=== PATIENT | male | born 1950 | race Caucasian/White ===

== ENCOUNTER 2018-01-09 11:14 | Outpatient (CLI) | payer MEDICARE, OTHER | END 2018-01-09 11:15 | disposition home or self-care (01) | LOC: DI 11:14 | PROVIDERS: ATTEND Internal Medicine | DX: J96.11 Chronic respiratory failure with hypoxia (principal); I77.810 Thoracic aortic ectasia; I51.7 Cardiomegaly | CPT/HCPCS: 93306 ==

== ENCOUNTER 2018-01-23 13:15 | Outpatient (CLI) | payer MEDICARE, OTHER | END 2018-01-23 13:16 | disposition home or self-care (01) | LOC: RT 13:15 | PROVIDERS: ATTEND Internal Medicine | DX: J96.11 Chronic respiratory failure with hypoxia (principal) | CPT/HCPCS: 94010; 94761 ==